=== PATIENT | female | born 1995 | race Caucasian/White ===

== ENCOUNTER 2024-01-05 07:19 | Emergency (ER) | payer OTHER ==
[~2024-01-05] VITALS: Ht 165.1 cm; Wt 56.7 kg
[~2024-01-05 07:19] MED LIST: NALO4SPR BNOSTRILS
[2024-01-05] MEDS ORDERED: ONDANSETRON 4 MG/2 ML VIAL ONE (07:59)
[2024-01-05] MEDS: IV NORMAL SALINE 1000 ML BAG IV ONE (08:01)
[2024-01-05] MEDS: ONDANSETRON 4 MG/2 ML VIAL IV ONE (08:01)
[2024-01-05 08:14] LABS: *BILIRUBIN,URIN NEGATIVE (NEGATIVE); *BLOOD, URINE 2+ (NEGATIVE); *CLARITY,URINE CLEAR (CLEAR); *COLOR,URINE YELLOW (YELLOW); *KETONES,URINE NEGATIVE (NEGATIVE); *PROTEIN,URINE 1+ (NEGATIVE); *UROBILINOGEN,URINE 0.2 E.U./dl (NORMAL); LEUKOCYTE ESTERASE ,URINE TRACE (NEGATIVE); NITRITE, URINE NEGATIVE (NEGATIVE); PH,URINE 5.5 (5.0-8.0); UGLUCOSE NEGATIVE (NEGATIVE)
[2024-01-05 08:20] LABS: *URINE HCG, QUAL NEGATIVE (NEGATIVE)
[2024-01-05 08:21] LABS: BASOPHILS # (AUTO) 0.1 K/UL (0.0-0.2); BASOPHILS % (AUTO) 0.9 % (0.0-2.0); EOSINOPHILS # (AUTO) 0.3 K/uL (0.0-0.7); EOSINOPHILS % (AUTO) 1.9 % (0.0-7.0); HEMATOCRIT 42.6 % (31.2-41.9); HEMOGLOBIN 13.9 g/dL (10.9-14.3); LYMPHOCYTES % (AUTO) 26.7 % (20.5-51.5); MEAN CORPUSCULAR HEMOGLOBIN 25.5 uug (24.7-32.8); MEAN CORPUSCULAR HGB CONC 33 g/dL (32.3-35.6); MEAN CORPUSCULAR VOLUME 78.1 fL (75.5-95.3); MONOCYTES # (AUTO) 0.8 K/uL (0.1-1.30); MONOCYTES % (AUTO) 5.4 % (0.0-11.0); NEUTROPHILS # (AUTO) 9.7 K/uL (1.8-8.9); NEUTROPHILS % (AUTO) 65.1 % (38.5-71.5); PLATELET COUNT (AUTO) 361 K/uL (179-408); RED BLOOD CELL COUNT(AUTO) 5.45 MIL/uL (3.63-4.92); WHITE BLOOD COUNT (AUTO) 14.9 K/uL (3.8-11.8)
[2024-01-05 08:22] LABS: DIFFERENTIAL COMMENT 1
[2024-01-05 08:29] LABS: ALBUMIN 3.8 g/dL (3.4-5.0); BILIRUBIN,DIRECT 0.2 mg/dL (0.0-0.2); BILIRUBIN,TOTAL 0.5 mg/dL (0.2-1.0); CALCIUM 8.9 mg/dL (8.5-10.1); CREATININE 1.4 mg/dL (0.6-1.3); TOTAL PROTEIN, SERUM 7.8 g/dL (6.4-8.2)
[2024-01-05 08:47] LABS: ETHANOL < 3 MG/DL (0-10)
[2024-01-05] MEDS ORDERED: POTASSIUM CHLORIDE 20 MEQ TAB.PRT.SR ONE (09:54)
[2024-01-05] MEDS ORDERED: MAG HYDROX/AL HYDROX/SIMETH 30 ML LIQUID UDC ONE (09:54)
[2024-01-05] MEDS ORDERED: LIDOCAINE VISCUS 2% 15 ML UDC ONE (09:54)
[2024-01-05] MEDS ORDERED: FAMOTIDINE. 20 MG/2 ML VIAL IV ONE (09:55)
[2024-01-05] MEDS: LIDOCAINE VISCUS 2% 15 ML UDC MM ONE (10:26)
[2024-01-05] MEDS: MAG HYDROX/AL HYDROX/SIMETH 30 ML LIQUID UDC PO ONE (10:26)
[2024-01-05] MEDS: POTASSIUM CHLORIDE 20 MEQ TAB.PRT.SR PO ONE (10:26)
[2024-01-05] MEDS: FAMOTIDINE. 20 MG/2 ML VIAL IV ONE (10:26)
[2024-01-05 10:49] LABS: BACTERIA,URINE FEW /HPF (NONE SEEN); SQUAMOUS EPITHELIAL CELL,UR FEW /HPF (NONE SEEN)
[2024-01-05 11:15] LABS: *AMPHETAMINE, URINE POSITIVE (NEGATIVE); *BARBITURATE, URINE NEGATIVE (NEGATIVE); *BENZODIAZEPINE, URINE NEGATIVE (NEGATIVE); *CANNABINOID, URINE NEGATIVE (NEGATIVE); *COCCAINE, URINE NEGATIVE (NEGATIVE); *OPIATE, URINE NEGATIVE (NEGATIVE); *PHENCYCLIDINE SCREEN,URINE POSITIVE (NEGATIVE)
[2024-01-05] MEDS ORDERED: ONDA4TAB5 PO (11:30)
[2024-01-05] MEDS ORDERED: NALO4SPR BNOSTRILS (11:30)
[2024-01-05] MEDS ORDERED: AMOX-430 PO (11:30)
[2024-01-05] MEDS ORDERED: FAMO-132 PO (11:30)
[2024-01-05] MEDS ORDERED: DOXY100C5 PO (11:30)
[2024-01-05 11:36] LABS: FENTANYL, URINE POSITIVE (NEGATIVE)
[2024-01-05 12:46] VITALS: BP 131/71; TEMP 98.2; O2SAT 97
== END 2024-01-05 12:47 | disposition home or self-care (01) ==
LOC: ER 07:19
DX: F19.10 Other psychoactive substance abuse, uncomplicated (principal); E86.0 Dehydration; E87.6 Hypokalemia; R59.0 Localized enlarged lymph nodes; R10.9 Unspecified abdominal pain; R11.2 Nausea with vomiting, unspecified; R19.7 Diarrhea, unspecified; F17.200 Nicotine dependence, unspecified, uncomplicated; Z79.899 Other long term (current) drug therapy; Z60.2 Problems related to living alone
CPT/HCPCS: 80076; 80048; 81001; 84703; 83690; 85025; 36415; 93005; 74176; 99285; 96361; 96374; 96375; 87086; 80320; 80307; 98960; J3490; J2405; J7040; A4606; A4663; G0480